=== PATIENT | male | born 1970 | race Caucasian/White ===

== ENCOUNTER 2018-10-17 18:17 | Emergency (ER) | payer MEDICAID ==
[~2018-10-17] VITALS: Ht 162.6 cm; Wt 54.4 kg
[2018-10-17 18:17] VITALS: BP_SYST 141
== END 2018-10-17 18:45 ==
LOC: SED 18:17
DX: S93.402A Sprain of unspecified ligament of left ankle, initial encounter (principal); R03.0 Elevated blood-pressure reading, without diagnosis of hypertension; V03.10XA Pedestrian on foot injured in collision with car, pick-up truck or van in traffic accident, initial encounter; Y93.89 Activity, other specified; Y92.89 Other specified places as the place of occurrence of the external cause; Y92.410 Unspecified street and highway as the place of occurrence of the external cause; Y99.8 Other external cause status
CPT/HCPCS: 99283